=== PATIENT | male | born 1980 | race African-American/Black ===

== ENCOUNTER 2020-09-09 11:40 | Emergency (ER) | payer BC, SELFPAY ==
[2020-09-09 12:43] LABS: Bacteria/HPF None Seen HPF (None Seen); Bilirubin Negative (Negative); Blood, Urine Negative (Negative); Clarity Clear (Clear); Glucose, Urine (Dipstick) Normal (Negative); Ketone, Urine Negative (Negative); Leukocyte 500 Leu/uL (Negative); Mucous/LPF 1+ LPF (<2+); Nitrite Negative (Negative); Protein, Urine (Dipstick) Negative (Neg-Trace); RBC/HPF 0-3 HPF (0-3); Specific Gravity, Urine 1.022 (1.002-1.036); Squamous Epithelial None Seen HPF (0-3); Urobilinogen Normal mg/dL (Less than 2); WBC/HPF Greater than 50 HPF (0-3)
[2020-09-09] MEDS ORDERED: cefTRIAXone\\ROCEPHIN 250 MG VIAL ONE (13:21)
[2020-09-09] MEDS ORDERED: Sterile Water 10 ML ONE (13:21)
[2020-09-09] MEDS ORDERED: Azithromycin 250 MG TAB ONE (13:21)
[2020-09-11 20:57] LABS: Chlam.trachomatis by PCR,Urine Not Detected (NotDetected)
== END 2020-09-09 13:38 | disposition home or self-care (01) ==
LOC: ERS 11:40
DX: R36.9 Urethral discharge, unspecified (principal)
CPT/HCPCS: 81003; 81015; 87491; 87591; 96372; 99283; J0696

== ENCOUNTER 2022-10-18 07:30 | Emergency (ER) | payer BC, SELFPAY ==
[2022-10-18] MEDS ORDERED: cefTRIAXone\\ROCEPHIN 500 MG VIAL ONE (08:35)
[2022-10-18] MEDS ORDERED: Lidocaine 1% PF 5 ML VIAL ONE (08:35)
[2022-10-18 16:21] LABS: Chlam.trachomatis by PCR,Urine Not Detected (NotDetected)
== END 2022-10-18 08:58 | disposition home or self-care (01) ==
LOC: ERS 07:30
DX: Z20.2 Contact with and (suspected) exposure to infections with a predominantly sexual mode of transmission (principal)
CPT/HCPCS: 87491; 87591; 96372; 99283; J0696